=== PATIENT | female | born 1990 | race African-American/Black ===

== ENCOUNTER 2024-03-26 08:12 | Emergency (ER) | payer BC ==
[2024-03-26 08:52] LABS: #Basophils 0.04 10x3/uL (0.0-0.2); #Eosinophils 0.14 10x3/uL (0.0-0.5); #Monocytes 0.75 10x3/uL (0.0-1.1); #Neutrophils 6.88 10x3/uL (1.5-8.4); %Basophils 0.4 % (0.0-2.0); %Eosinophils 1.4 % (0.0-6.0); %Lymphocytes 18.9 % (18.0-47.0); %Monocytes 7.7 % (0.0-10.0); Hematocrit 37.1 % (34.9-44.5); Hemoglobin 13.1 g/dL (12.0-15.5); Mean Corpuscular HGB CONC 35.3 g/dL (32.0-36.0); Mean Corpuscular Hemoglobin 27.9 pg (27.0-33.0); Mean Corpuscular Volume 78.9 fL (81.6-98.3); Mean Platelet Volume 9.8 fL (7.4-10.4); Platelet Count 234 10x3/uL (150-450); RBC Distribution Width 13.9 % (11.5-14.5); White Blood Cell (WBC) Count 9.7 10x3/uL (3.5-10.5)
[2024-03-26 08:57] LABS: Bilirubin Neg (Negative); Blood, Urine Negative (Negative); Clarity Clear (Clear); Glucose, Urine (Dipstick) Normal (Negative); Ketone, Urine Negative (Negative); Leukocyte Negative (Negative); Nitrite Negative (Negative); Protein, Urine (Dipstick) Negative (Neg-Trace); Specific Gravity, Urine 1.005 (1.005-1.030); Urobilinogen Normal mg/dL (Less than 2); pH, Urine 6.5 (5.0-9.0)
[2024-03-26 09:07] LABS: ALT (SGPT) 17 U/L (8-55); AST (SGOT) 17 U/L (5-34); Albumin 3.8 g/dL (3.5-5.0); Alkaline Phosphatase 45 U/L (40-110); Anion Gap 15 mmol/L (10-20); BUN (Urea Nitrogen) 4 mg/dL (7.0-18.7); Bilirubin, Total 0.3 mg/dL (0.2-1.2); Calc. Creatinine Clearance 0 mL/min (70-130); Calcium 9.6 mg/dL (7.8-10.44); Carbon Dioxide 20 mmol/L (22-29); Chloride 105 mmol/L (98-107); Estimated GFR 115; Globulin 3.2 g/dL (2.4-3.5); Glucose 94 mg/dL (70-105); Potassium 4.3 mmol/L (3.5-5.1); Sodium 136 mmol/L (136-145)
[2024-03-26 09:08] LABS: Bacteria/HPF 1+ HPF (None Seen); CAUTI Indications for Culture Pregnancy; RBC/HPF 0-3 HPF (0-3); Squamous Epithelial 0-3 HPF (0-3); WBC/HPF 0-3 HPF (0-3)
[2024-03-26 09:09] LABS: Urine Culture Reflex No No; Urine Culture Reflex Yes Yes
== END 2024-03-26 12:18 | disposition home or self-care (01) ==
LOC: CSHERS 08:12
DX: O26.851 Spotting complicating pregnancy, first trimester (principal); O99.891 Other specified diseases and conditions complicating pregnancy; R82.71 Bacteriuria; Z3A.13 13 weeks gestation of pregnancy
CPT/HCPCS: 36415; 76856; 80053; 81001; 84702; 85025; 87086; 87480; 87510; 87660

== ENCOUNTER 2024-03-28 11:49 | Emergency (ER) | payer BC ==
[2024-03-28 12:51] LABS: #Basophils 0.03 10x3/uL (0.0-0.2); #Eosinophils 0.09 10x3/uL (0.0-0.5); #Neutrophils 6.67 10x3/uL (1.5-8.4); %Basophils 0.3 % (0.0-2.0); %Lymphocytes 19.2 % (18.0-47.0); %Monocytes 8.4 % (0.0-10.0); %Neutrophils 70.5 % (40.0-75.0); Hematocrit 37.5 % (34.9-44.5); Hemoglobin 12.9 g/dL (12.0-15.5); Mean Corpuscular HGB CONC 34.4 g/dL (32.0-36.0); Mean Corpuscular Hemoglobin 27.3 pg (27.0-33.0); Mean Corpuscular Volume 79.3 fL (81.6-98.3); Mean Platelet Volume 10.2 fL (7.4-10.4); Platelet Count 234 10x3/uL (150-450); RBC Distribution Width 13.4 % (11.5-14.5); Red Blood Cell (RBC) Count 4.73 10x6/uL (3.90-5.03); White Blood Cell (WBC) Count 9.5 10x3/uL (3.5-10.5)
[2024-03-28 12:52] LABS: Bilirubin Neg (Negative); Blood, Urine 150 (Negative); Clarity Slightly Cloudy (Clear); Glucose, Urine (Dipstick) Normal (Negative); Ketone, Urine Negative (Negative); Leukocyte 500 (Negative); Nitrite Negative (Negative); Protein, Urine (Dipstick) Negative (Neg-Trace); Specific Gravity, Urine 1.005 (1.005-1.030); Urobilinogen Normal mg/dL (Less than 2); pH, Urine 6.5 (5.0-9.0)
[2024-03-28 13:40] LABS: Bacteria/HPF 3+ HPF (None Seen); CAUTI Indications for Culture Pregnancy; WBC/HPF 21-50 HPF (0-3)
[2024-03-28 13:41] LABS: Urine Culture Reflex Yes Yes
== END 2024-03-28 18:43 | disposition home or self-care (01) ==
LOC: CSHERS 11:49
DX: O20.0 Threatened abortion (principal); O23.41 Unspecified infection of urinary tract in pregnancy, first trimester; N39.0 Urinary tract infection, site not specified; O99.611 Diseases of the digestive system complicating pregnancy, first trimester; K59.00 Constipation, unspecified; O21.9 Vomiting of pregnancy, unspecified; Z3A.13 13 weeks gestation of pregnancy
CPT/HCPCS: 51702; 76856; 81001; 84702; 85025; 87086

== ENCOUNTER 2024-04-02 12:40 | Inpatient (IN) | payer BC ==
[2024-04-02 13:44] LABS: Fetal Membranes Rupture RUPTURE DETECTED (No Rupture)
[2024-04-02] MEDS ORDERED: Docusate 100 MG CAP PO PRN (14:30)
[2024-04-02] MEDS ORDERED: Carboprost 250 MCG/ML AMP IM PRN (14:30)
[2024-04-02] MEDS ORDERED: Promethazine HCl 25 MG/ML VIAL IM PRN (14:30)
[2024-04-02] MEDS ORDERED: hydrALAZINE 20 MG/ML VIAL SLOW IVP PRN (14:30)
[2024-04-02] MEDS ORDERED: Acetaminophen 500 MG TAB PO PRN (14:30)
[2024-04-02] MEDS ORDERED: Diphenoxylate HCl/Atropine Tablet PO PRN (14:30)
[2024-04-02] MEDS ORDERED: Methylergonovine 0.2 MG/ML VIAL IM PRN (14:30)
[2024-04-02] MEDS ORDERED: Tranexamic Acid 1,000 MG/10 ML VIAL IVP PRN (14:30)
[2024-04-02 15:48] VITALS: BMI 28.5
[2024-04-02] MEDS: Misoprostol 200 MCG TAB PR PRN (15:54)
[2024-04-02] MEDS: Misoprostol 200 MCG TAB PO SCH ×2 (16:18→21:01)
[2024-04-02] MEDS: Morphine 4 MG/ML VIAL SLOW IVP SCH ×2 (17:14→21:50)
[2024-04-02 18:36] LABS: Hematocrit 37.7 % (34.9-44.5); Hemoglobin 13.3 g/dL (12.0-15.5); Mean Corpuscular HGB CONC 35.3 g/dL (32.0-36.0); Mean Corpuscular Hemoglobin 27.5 pg (27.0-33.0); Mean Corpuscular Volume 78.1 fL (81.6-98.3); Mean Platelet Volume 9.8 fL (7.4-10.4); Platelet Count 240 10x3/uL (150-450); Red Blood Cell (RBC) Count 4.83 10x6/uL (3.90-5.03); White Blood Cell (WBC) Count 9.7 10x3/uL (3.5-10.5)
[2024-04-02 19:08] LABS: Syphilis Antibody Nonreactive (Nonreactive); Syphilis Antibody Index 0.04 S/CO (<1.00 Non-Reactive)
[2024-04-02 19:09] LABS: HBsAg Index 0.19 S/CO (0-0.99); Hep B Surf Ag Non-Reactive S/CO (NonReactive)
[2024-04-02] MEDS: Misoprostol 200 MCG TAB ONE (20:12)
[2024-04-02] MEDS ORDERED: Misoprostol 200 MCG TAB PO ONE (20:26)
[2024-04-02] MEDS: Ondansetron PF 4 MG/2 ML Vial IVP PRN (20:57)
[2024-04-02] MEDS: Oxytocin 10 UNITS/ML VIAL ONE (23:25)
[2024-04-02] MEDS: Oxytocin 30 units/NS 500 ML 500 ML IV SCH (23:25)
[2024-04-02] MEDS ORDERED: Oxytocin 10 UNITS/ML VIAL IM SCH (23:30)
[2024-04-03] MEDS: Doxycycline 100 MG CAP PO SCH (00:56)
[2024-04-03] MEDS ORDERED: Carboprost 250 MCG/ML AMP ONE (01:22)
[2024-04-03] MEDS ORDERED: Methylergonovine 0.2 MG/ML VIAL ONE (01:22)
[2024-04-03] MEDS ORDERED: Tranexamic Acid 1,000 MG/10 ML VIAL ONE (01:22)
[2024-04-03] MEDS ORDERED: Misoprostol 200 MCG TAB ONE (01:22)
[2024-04-03] MEDS ORDERED: fentaNYL 50 mcg/mL 1 mL Vial ONE (01:24)
[2024-04-03] MEDS ORDERED: Midazolam HCl 2 mg/2 ml Vial ONE (01:24)
[2024-04-03] MEDS ORDERED: PROPOFOL 20 ML ONE (01:24)
[2024-04-03] MEDS ORDERED: Lidocaine 1% PF 5 ML VIAL ONE (01:25)
[2024-04-03] MEDS ORDERED: Ondansetron PF 4 MG/2 ML Vial ONE (01:25)
[2024-04-03] MEDS ORDERED: Dexamethasone 4 mg/ml Vial ONE (01:25)
[2024-04-03] MEDS ORDERED: SUCCINYLCHOLINE/SOD CL,ISO/PF 200 MG/10 ML SYRINGE FS ONE (01:33)
[2024-04-03] MEDS ORDERED: Ketorolac Tromethamine 30 MG (1 mL) VIAL ONE (02:20)
[2024-04-03] MEDS ORDERED: Ibuprofen 800 MG TAB PO PRN ×2 (02:48→07:15)
[2024-04-03] MEDS ORDERED: hydrALAZINE 20 MG/ML VIAL SLOW IVP PRN (02:48)
[2024-04-03 04:40] LABS: #Basophils 0.03 10x3/uL (0.0-0.2); #Eosinophils 0.02 10x3/uL (0.0-0.5); #Monocytes 0.45 10x3/uL (0.0-1.1); #Neutrophils 11.21 10x3/uL (1.5-8.4); %Basophils 0.2 % (0.0-2.0); %Eosinophils 0.2 % (0.0-6.0); %Lymphocytes 7.3 % (18.0-47.0); %Monocytes 3.5 % (0.0-10.0); %Neutrophils 88.2 % (40.0-75.0); Hematocrit 34.8 % (34.9-44.5); Hemoglobin 12.5 g/dL (12.0-15.5); Mean Corpuscular HGB CONC 35.9 g/dL (32.0-36.0); Mean Corpuscular Hemoglobin 28.2 pg (27.0-33.0); Mean Corpuscular Volume 78.4 fL (81.6-98.3); Mean Platelet Volume 9.7 fL (7.4-10.4); Platelet Count 224 10x3/uL (150-450); RBC Distribution Width 13.1 % (11.5-14.5); Red Blood Cell (RBC) Count 4.44 10x6/uL (3.90-5.03); White Blood Cell (WBC) Count 12.7 10x3/uL (3.5-10.5)
[2024-04-03 09:56] VITALS: BP 117/70; TEMP 97.9
[2024-04-03 17:24] LABS: Chlamydia by PCR, Vaginal Swab Not Detected (NotDetected); GC by PCR, Vaginal Swab Not Detected (NotDetected)
[2024-04-05 14:55] LABS: Group B Streptococcus by PCR Not Detected (NotDetected)
== END 2024-04-03 11:45 | disposition home or self-care (01) | DRG 770 ==
LOC: CSHERS 12:40 → CSHLD/OP 15:04 → CSHLD 15:06 → CSHPP 04-03 02:49
PROVIDERS: ADMIT Student in an Organized Health Care Education/Training Program; ATTEND Student in an Organized Health Care Education/Training Program
PROC: 10D17ZZ Extraction of Products of Conception, Retained, Via Natural or Artificial Opening (ICD-10-PCS; principal; 2024-04-03)
DX: O02.1 Missed abortion (principal); Z79.899 Other long term (current) drug therapy
CPT/HCPCS: 36415; 51702; 84112; 85025; 85027; 86780; 86850; 86900; 86901; 87340; 87480; 87491; 87510; 87591; 87653; 87660; 88300; 88305; 99283; J1100; J1885; J2210; J2250; J2272; J2405; J2590; J2704; J3010; J3490